=== PATIENT | male | born 1950 | race Caucasian/White ===

== ENCOUNTER 2018-08-14 13:59 | Emergency (ER) | payer OTHER ==
[2018-08-14] MEDS ORDERED: Aspirin 81 MG Tab.Chew PO ONE (14:12)
[2018-08-14] MEDS ORDERED: Sodium Chloride 0.9% 2.5 ML Syringe FLUSH PRN (14:13)
[2018-08-14] MEDS ORDERED: Sodium Chloride 0.9% 10 ML Syringe FLUSH PRN (14:13)
--- NOTE | 2018-08-14 14:18 | EDM.PDOC ---
<Caitlin Reynoso E - Last Filed: 08/14/18 15:56> ED HPI GENERAL MEDICAL PROBLEM - General Chief Complaint: Chest Pain Stated Complaint: HAD CHEST PAIN LAST NIGHT REF FROM [place] Time Seen by Provider: 08/14/18 14:12 Source of Information: Reports: Patient History Limitations: Reports: No Limitations - History of Present Illness INITIAL COMMENTS - FREE TEXT/NARRATIVE: HISTORY AND PHYSICAL: History of present illness: Patient is a 67-year-old male who presents to the emergency room today with complaints of chest pain and bilateral shoulder pain. He reports yesterday he had noticed some intermittent chest pain that would wax and wane. Last evening from midnight to 2 AM he had chest pains while laying in bed. Nothing exacerbated or alleviated the pain. He states he does have a hernia which he is able to reduce himself. States that it frequently needs to be reduced and has not had any complications with that. He mentions this as he is not sure if this is associated with the chest pain he had been experiencing. He thought maybe him pressing on his abdomen was causing his shoulder pain, and perhaps the gas pain was causing his chest pain. This morning he called his provider from the [place] who encouraged him to come to the emergency room for evaluation. He denies any current chest pain or shortness of breath. He states he is here for "evaluation only". Patient denies any fever, chills, headache, change in vision, syncope or near syncope. Denies any chest pain, back pain, shortness of breath or cough. Denies any abdominal pain, nausea, vomiting, diarrhea, constipation or dysuria. Has not noted any blood in urine or stool. Patient has been eating and drinking appropriately. Past medical history of hypertension and abdominal hernia. Denies any personal or family history of heart disease. Review of systems: As per history of present illness and below otherwise all systems reviewed and negative. Past medical history: As per history of present illness and as reviewed below otherwise noncontributory. Surgical history: As per history of present illness and as reviewed below otherwise noncontributory. Social history: See social history for further information Family history: As per history of present illness and as reviewed below otherwise noncontributory. Physical exam: General: Well-developed and well-nourished 67-year-old male. Alert and oriented. Nontoxic appearing and in no acute distress. HEENT: Atraumatic, normocephalic, pupils equal and reactive bilaterally, negative for conjunctival pallor or scleral icterus, mucous membranes moist, trachea midline. No drooling or trismus noted. No meningeal signs. No hot potato voice noted. Lungs: Clear to auscultation, breath sounds equal bilaterally, chest nontender. Heart: S1S2, regular rate and rhythm without overt murmur Abdomen: Soft, nondistended, obese, nontender. Healed abdominal scars to mid- abdomen. Negative for masses. Negative for costovertebral tenderness. Pelvis: Stable nontender. Genitourinary: Deferred. Rectal: Deferred. Skin: Healed scabbing noted to bilateral shins of the lower extremities. Intact , warm, dry. No lesions or rashes noted. Extremities: Atraumatic, moves all extremities per self without difficulty or deficits, negative for cords or calf pain. Normal variance of 3 fingers of the right hand. Neurovascular unremarkable. Neuro: Awake, alert, oriented. Cranial nerves II through XII unremarkable. Cerebellum unremarkable. Motor and sensory unremarkable throughout. Exam nonfocal. Notes: EKG shows a rhythm that appears irregular and regular rhythm; looks like the patient may go in and out of atrial fibrillation as he has intermittent p- waves. Dr Mei, cardiology, did look at this EKG and agrees it looks like variable afib. Chest x-ray shows no acute findings. Troponin is elevated at 12.9. Patient states he has had no chest pain since this morning at 2 AM. Vital signs remain stable. I did discuss these findings with the patient. He is agreeable to transfer to [facility]. EJ Mckoy MD at [facility] was consulted on this case. Agreeable to accepting this patient for further management and evaluation. Diagnostics: CBC, CMP, BNP, Troponin, EKG, CXR, TSH Therapeutics: Saline Lock, Aspirin, Nitro paste, Lovenox Impression: ACS Elevated Troponin New onset of afib Plan: Transfer to [facility] via ground EMS Definitive disposition and diagnosis as appropriate pending reevaluation and review of above. - Related Data Allergies Allergy/AdvReac Type Severity Reaction Status Date / Time No Known Allergies Allergy Verified 08/14/18 14:03 Home Meds: Home Meds Aspirin 81 mg PO DAILY 08/14/18 [History] FLUoxetine HCl [Fluoxetine HCl] 20 mg PO DAILY 08/14/18 [History] Lisinopril 40 mg PO DAILY 08/14/18 [History] Omeprazole 20 mg PO ACBREAKFAST 08/14/18 [History] Sulindac 200 mg PO DAILY 08/14/18 [History] Triamterene/Hydrochlorothiazid [Triamterene-HCTZ 37.5-25 MG] 1 tab PO DAILY 03/04 [History] amLODIPine Besylate [Amlodipine Besylate] 10 mg PO DAILY 08/14/18 [History] Past Medical History Cardiovascular History: Reports: Hypertension Gastrointestinal History: Reports: GERD Psychiatric History: Reports: Depression - Infectious Disease History Infectious Disease History: Reports: Measles, Mumps - Past Surgical History GI Surgical History: Reports: Hernia, Inguinal Musculoskeletal Surgical History: Reports: Amputation, Hip Replacement Other Musculoskeletal Surgeries/Procedures:: L leg Social & Family History - Family History Family Medical History: Noncontributory - Tobacco Use Years of Tobacco use: 50 Packs/Tins Daily: 1 - Recreational Drug Use Recreational Drug Use: No ED ROS GENERAL - Review of Systems Review Of Systems: ROS reveals no pertinent complaints other than HPI. ED EXAM, GENERAL - Physical Exam Exam: See Below (See dictation) Course - Vital Signs Last Recorded V/S: Last Vital Signs Temp 35.9 C 08/14/18 14:01 Pulse 83 08/14/18 16:07 Resp 20 08/14/18 16:07 BP 189/100 H 08/14/18 16:07 Pulse Ox 97 08/14/18 16:07 - Orders/Labs/Meds Orders: Active Orders 24 hr Category Date Time Status EKG Documentation Completion [RC] STAT Care 08/14/18 14:12 Active Sodium Chloride 0.9% [Saline Flush] Med 08/14/18 14:13 Active 10 ml FLUSH ASDIRECTED PRN Sodium Chloride 0.9% [Saline Flush] Med 08/14/18 14:13 Active 2.5 ml FLUSH ASDIRECTED PRN Saline Lock Insert [OM.PC] Stat Oth 08/14/18 14:13 Ordered Medication Orders Sodium Chloride (Saline Flush) 10 ml FLUSH ASDIRECTED PRN PRN Reason: Keep Vein Open Last Admin: 08/14/18 14:33 Dose: 10 ml Sodium Chloride (Saline Flush) 2.5 ml FLUSH ASDIRECTED PRN PRN Reason: Keep Vein Open Last Admin: 08/14/18 14:32 Dose: 2.5 ml Labs: Laboratory Tests 08/14/18 08/14/18 08/14/18 Range/Units 14:23 14:23 14:23 WBC 10.89 (4.0-11.0) K/uL RBC 4.78 (4.50-5.90) M/uL Hgb 14.6 (13.0-17.0) g/dL Hct 42.6 (38.0-50.0) % MCV 89.1 (80.0-98.0) fL MCH 30.5 (27.0-32.0) pg MCHC 34.3 (31.0-37.0) g/dL RDW Std Deviation 45.6 (28.0-62.0) fl RDW Coeff of Emmy 14 (11.0-15.0) % Plt Count 164 (150-400) K/uL MPV 9.80 (7.40-12.00) fL Neut % (Auto) 77.7 (48.0-80.0) % Lymph % (Auto) 13.0 L (16.0-40.0) % [place] % (Auto) 8.5 (0.0-15.0) % Eos % (Auto) 0.6 (0.0-7.0) % Baso % (Auto) 0.2 (0.0-1.5) % Neut # (Auto) 8.5 H (1.4-5.7) K/uL Lymph # (Auto) 1.4 (0.6-2.4) K/uL [place] # (Auto) 0.9 H (0.0-0.8) K/uL Eos # (Auto) 0.1 (0.0-0.7) K/uL Baso # (Auto) 0.0 (0.0-0.1) K/uL Nucleated RBC % 0.0 /100WBC Nucleated RBCs # 0 K/uL Sodium 137 (136-148) mmol/L Potassium 3.2 L (3.5-5.1) mmol/L Chloride 102 (98-107) mmol/L Carbon Dioxide 24.9 (21.0-32.0) mmol/L BUN 13 (7.0-18.0) mg/dL Creatinine 0.7 L (0.8-1.3) mg/dL Est Cr Clr Drug Dosing 109.32 mL/min Estimated GFR (MDRD) > 60.0 ml/min Glucose 120 H (74-106) mg/dL Calcium 8.7 (8.5-10.1) mg/dL Total Bilirubin 1.1 H (0.2-1.0) mg/dL AST 56 H (15-37) IU/L ALT 21 (14-63) IU/L Alkaline Phosphatase 85 (46-116) U/L Troponin I 12.910 H* (0.000-0.056) ng/mL B-Natriuretic Peptide 250 H (<100) PG/ML Total Protein 6.9 (6.4-8.2) g/dL Albumin 3.6 (3.4-5.0) g/dL Globulin 3.3 (2.6-4.0) g/dL Albumin/Globulin Ratio 1.1 (0.9-1.6) TSH 3rd Generation 1.27 (0.36-3.74) uIU/mL Meds: Medications Generic Name Dose Route Start Last Admin Trade Name Freq PRN Reason Stop Dose Admin Sodium Chloride 10 ml 08/14/18 14:13 08/14/18 14:33 Saline Flush FLUSH 10 ml ASDIRECTED PRN Administration Keep Vein Open Sodium Chloride 2.5 ml 08/14/18 14:13 08/14/18 14:32 Saline Flush FLUSH 2.5 ml ASDIRECTED PRN Administration Keep Vein Open Discontinued Medications Generic Name Dose Route Start Last Admin Trade Name Freq PRN Reason Stop Dose Admin Aspirin 324 mg 08/14/18 14:12 08/14/18 14:32 Aspirin PO 08/14/18 14:13 324 mg ONETIME ONE Administration Enoxaparin Sodium 100 mg 08/14/18 16:06 08/14/18 16:14 Lovenox SUBCUT 08/14/18 16:07 100 mg ONETIME ONE Administration Enoxaparin Sodium 40 mg 08/14/18 16:07 Lovenox SUBCUT 08/14/18 16:08 ONETIME ONE Nitroglycerin 1 gm 08/14/18 15:55 08/14/18 16:08 Nitro-Bid 2% TOP 08/14/18 15:56 1 gm ONETIME ONE Administration Departure - Departure Time of Disposition: 16:02 Disposition: DC/Tfer to Acute Hospital 02 Reason for Transfer *Q: Primary PCI Indicated Clinical Impression: New onset a-fib, Acute coronary syndrome, Elevated troponin Forms: ED Department Discharge <Elke Kennedy - Last Filed: 08/14/18 16:16> ED HPI GENERAL MEDICAL PROBLEM - History of Present Illness INITIAL COMMENTS - FREE TEXT/NARRATIVE: Dr Weiner, our mold technician , was curb sided on the EKG as there are sections that are very regular and other sections that look irregular and he agrees that it is the variable A. fib but does not see any acute changes. He agrees with transfer
[2018-08-14 15:16] LABS: CHLORIDE,CL 102 mmol/L (98-107); SODIUM,NA 137 mmol/L (136-148)
--- NOTE | 2018-08-14 15:30 | CR ---
EXAMINATION: Portable chest radiograph. HISTORY: Chest pain. Comparison: 03/05/2016 FINDINGS: The trachea is midline. Heart is borderline in size. The cardiomediastinal silhouette is stable. No pulmonary infiltrates, effusions or pneumothorax. Osseous structures appear unremarkable. IMPRESSION: No acute cardiopulmonary process.
[2018-08-14] MEDS ORDERED: Nitroglycerin 2% Oint 1 GM UD Packet TOP ONE (15:55)
[2018-08-14] MEDS ORDERED: Enoxaparin 100 MG/1 ML Syringe SUBCUT ONE (16:06)
[2018-08-14] MEDS ORDERED: Enoxaparin 60 MG/0.6 ML Syringe SUBCUT ONE (16:07)
[2018-08-14 17:14] VITALS: BP 140/73
== END 2018-08-14 17:21 ==
LOC: MW.ED 13:59
DX: I24.9 Acute ischemic heart disease, unspecified (principal); I48.91 Unspecified atrial fibrillation; R79.89 Other specified abnormal findings of blood chemistry; I10 Essential (primary) hypertension; K21.9 Gastro-esophageal reflux disease without esophagitis; Z79.82 Long term (current) use of aspirin; Z79.899 Other long term (current) drug therapy
CPT/HCPCS: 36415; 71045; 80053; 83880; 84443; 84484; 85025; 93005; 99285; A9270; J1650

== ENCOUNTER 2019-08-13 23:45 | Emergency (ER) | payer MEDICARE, OTHER ==
[~2019-08-13 23:45] MED LIST: Sodium Chloride 0.9% 1,000 ML IV SCH
[2019-08-13] MEDS ORDERED: Sodium Chloride 0.9% 2.5 ML Syringe FLUSH PRN (23:52)
[2019-08-13] MEDS ORDERED: Sodium Chloride 0.9% 10 ML Syringe FLUSH PRN (23:52)
--- NOTE | 2019-08-13 23:54 | EDM.PDOC ---
ED HPI GENERAL MEDICAL PROBLEM - General Chief Complaint: Trauma Stated Complaint: TRAUMA/HEAD/LEG INJURY Time Seen by Provider: 08/13/19 23:51 - History of Present Illness INITIAL COMMENTS - FREE TEXT/NARRATIVE: History of present illness: [] Patient was kicked in the right thigh by andrew 10 AM. He was knocked to the ground and [employer] stepped on his lower leg. Owing over the day has become so much the pain is intolerable and he cannot bear weight. The patient has warfarin for prior heart attack. The patient says he was kicked in the head but not knocked out. He cannot even tell me where it hurts in his head he says there is no pain there now. Patient however is on warfarin and was kicked in the head by a cow. Patient is on warfarin for heart rhythm disturbance and has not had his warfarin for week. He just got his medicine and took his first dose today. Review of systems: As per history of present illness and below otherwise all systems reviewed and negative. Past medical history: As per history of present illness and as reviewed below otherwise noncontributory. Review of the 08/14/2018 admission shows he came in with chest pain, had a elevated troponin, and was discovered to be in atrial fibrillation. He was placed on blood thinners at that time. Surgical history: As per history of present illness and as reviewed below otherwise noncontributory. Social history: No reported history of drug or alcohol abuse. Family history: As per history of present illness and as reviewed below otherwise noncontributory. Physical exam: Constitutional - well developed, well-nourished and in no acute distress HEENT - normocephalic, no evidence of trauma - external nose and mouth normal - no mass in neck and no JVD - mucosae moist Cervical spine cleared by Nexus criteria EYES - full EOM, PERRL, no icterus - no evidence of inflammation, injection, or drainage Respiratory - no respiratory distress, equal bilateral expansion, lungs clear to auscultation and no abnormal lung sounds Cardiovascular - Regular Rhythm with S1 and S2 appreciated and no murmur, gallop or rub. Peripheral pulses symmetrically normal in all four extremities. The distal right foot is warm with normal sensation and movement in good pulses GI - abdomen soft without distension or organomegaly - normal bowel sounds - no guard or rebound Musculoskeletal Marked amount of swelling of the soft tissues especially in the medial anterior thigh with ecchymosis. There is tenderness along the anterior femur and swelling down to the ankle. No gross deformity of long bones or joints - no tenderness, swelling or edema Neurologic -sensation in the right foot alert and oriented times four - CN II- XII grossly intact - motor sensory and coordination symmetrically normal Psychiatric - appropriate mood and affect with normal thought content Hematologic - No petechiae or purpura - mucosa appropriate color and sclera not pale - normal nail bed color and refill Integument -phimosis in the right thigh no rash or evidence of trauma - normal turgor Diagnostics: [] X-ray reveals an isolated minimally displaced medial tibial plateau fracture in the right knee exam reveals point tenderness at the spot. Therapeutics: [] Impression: We will plateau fracture, large hematoma in the right lower extremity, subtherapeutic coagulation for atrial fibrillation. [] Plan: [] Definitive disposition and diagnosis as appropriate pending reevaluation and review of above. R thigh Pain Score (Numeric/FACES): 5 - Related Data Allergies Allergy/AdvReac Type Severity Reaction Status Date / Time No Known Allergies Allergy Verified 08/14/19 00:00 Home Meds: Home Meds Aspirin 81 mg PO DAILY 08/14/18 [History] FLUoxetine HCl [Fluoxetine HCl] 20 mg PO DAILY 08/14/18 [History] Lisinopril 40 mg PO DAILY 08/14/18 [History] Omeprazole 20 mg PO ACBREAKFAST 08/14/18 [History] Sulindac 200 mg PO DAILY 08/14/18 [History] Triamterene/Hydrochlorothiazid [Triamterene-HCTZ 37.5-25 MG] 1 tab PO DAILY 08/14/18 [History] amLODIPine Besylate [Amlodipine Besylate] 10 mg PO DAILY 08/14/18 [History] Past Medical History Cardiovascular History: Reports: Hypertension Gastrointestinal History: Reports: GERD Psychiatric History: Reports: Depression - Infectious Disease History Infectious Disease History: Reports: Measles, Mumps - Past Surgical History GI Surgical History: Reports: Hernia, Inguinal Musculoskeletal Surgical History: Reports: Amputation, Hip Replacement Other Musculoskeletal Surgeries/Procedures:: L leg Social & Family History - Family History Family Medical History: Noncontributory ED ROS GENERAL - Review of Systems Review Of Systems: Comprehensive ROS is negative, except as noted in HPI. ED EXAM, GENERAL - Physical Exam Exam: See Below Free Text/Narrative:: Exam is under HPI EKG INTERPRETATION Rhythm: A-Fib [place]: LAD-Left [place] Deviation QRS: Other (Complete left bundle branch block) ST-T: Other (T waves inverted in aVL) Comparison: Other: (Compared to 08/14/2018 there is no change) EKG Interpretation Comments: Impression no change in the EKG-normal for patient Course - Vital Signs Text/Narrative:: This patient has a hemoglobin of 12.6 with baseline 2 years apart in 2017 in 2019 of 14.6 and his old records. Is reasonable to assume that in the 14 hours since the accident he has dropped his hemoglobin 2 g. We do not have orthopedics on-call and the patient stable for transfer. After his CT of his head contact orthopedics and if necessary neurosurgery and transfer the patient to [facility] Chest x-ray reveals no change from 14 August 2018 no acute disease or injury. CT did not demonstrate any intracranial hemorrhage to me. Radiology report pending At well 58 hours since we have no orthopedics at this facility and the patient needs to be seen for tibial plateau fracture to plan his recovery with his weight issue and to be seen to rule out compartment syndrome I discussed the case with Dr. Henao at [facility] and he agreed to accept the patient. Last Recorded V/S: Last Vital Signs Temp 97.1 F 08/14/19 00:00 Pulse 67 08/14/19 01:00 Resp 18 08/14/19 01:00 BP 144/77 H 08/14/19 01:00 Pulse Ox 95 08/14/19 01:00 - Orders/Labs/Meds Orders: Active Orders 24 hr Category Date Time Status EKG Documentation Completion [RC] STAT Care 08/14/19 00:33 Active Head wo Cont [CT] Stat Exams 08/14/19 00:13 Taken UA W/SURJIT RFLX IF INDICATED [URIN] Stat Lab 08/14/19 00:57 Ordered Sodium Chloride 0.9% [Normal Saline] 1,000 ml Med 08/13/19 23:45 Active IV ASDIRECTED Sodium Chloride 0.9% [Saline Flush] Med 08/13/19 23:52 Active 10 ml FLUSH ASDIRECTED PRN Sodium Chloride 0.9% [Saline Flush] Med 08/13/19 23:52 Active 2.5 ml FLUSH ASDIRECTED PRN Saline Lock Insert [OM.PC] Stat Oth 08/13/19 23:52 Ordered Medication Orders Sodium Chloride (Normal Saline) 1,000 mls @ 125 mls/hr IV ASDIRECTED NICKY Last Admin: 08/14/19 00:12 Dose: 125 mls/hr Documented by: NANCY Sodium Chloride (Saline Flush) 10 ml FLUSH ASDIRECTED PRN PRN Reason: Keep Vein Open Sodium Chloride (Saline Flush) 2.5 ml FLUSH ASDIRECTED PRN PRN Reason: Keep Vein Open Labs: Laboratory Tests 08/13/19 08/13/19 08/13/19 Range/Units 23:55 23:55 23:55 WBC 9.91 (4.0-11.0) K/uL RBC 4.14 L (4.50-5.90) M/uL Hgb 12.6 L (13.0-17.0) g/dL Hct 37.9 L (38.0-50.0) % MCV 91.5 (80.0-98.0) fL MCH 30.4 (27.0-32.0) pg MCHC 33.2 (31.0-37.0) g/dL RDW Std Deviation 51.2 (28.0-62.0) fl RDW Coeff of Emmy 15 (11.0-15.0) % Plt Count 191 (150-400) K/uL MPV 10.20 (7.40-12.00) fL Neut % (Auto) 77.1 (48.0-80.0) % Lymph % (Auto) 12.7 L (16.0-40.0) % [place] % (Auto) 9.0 (0.0-15.0) % Eos % (Auto) 0.9 (0.0-7.0) % Baso % (Auto) 0.3 (0.0-1.5) % Neut # (Auto) 7.6 H (1.4-5.7) K/uL Lymph # (Auto) 1.3 (0.6-2.4) K/uL [place] # (Auto) 0.9 H (0.0-0.8) K/uL Eos # (Auto) 0.1 (0.0-0.7) K/uL Baso # (Auto) 0.0 (0.0-0.1) K/uL Nucleated RBC % 0.0 /100WBC Nucleated RBCs # 0 K/uL INR 1.24 Sodium 142 (136-148) mmol/L Potassium 3.7 (3.5-5.1) mmol/L Chloride 105 (98-107) mmol/L Carbon Dioxide 25.2 (21.0-32.0) mmol/L BUN 18 (7.0-18.0) mg/dL Creatinine 1.0 (0.8-1.3) mg/dL Est Cr Clr Drug Dosing 75.44 mL/min Estimated GFR (MDRD) > 60.0 ml/min Glucose 120 H (74-106) mg/dL Calcium 7.9 L (8.5-10.1) mg/dL Total Bilirubin 1.1 H (0.2-1.0) mg/dL AST 24 (15-37) IU/L ALT 46 (14-63) IU/L Alkaline Phosphatase 80 (46-116) U/L Total Protein 6.3 L (6.4-8.2) g/dL Albumin 3.6 (3.4-5.0) g/dL Globulin 2.7 (2.6-4.0) g/dL Albumin/Globulin Ratio 1.3 (0.9-1.6) Blood Type Antibody Screen 08/14/19 Range/Units 00:13 WBC (4.0-11.0) K/uL RBC (4.50-5.90) M/uL Hgb (13.0-17.0) g/dL Hct (38.0-50.0) % MCV (80.0-98.0) fL MCH (27.0-32.0) pg MCHC (31.0-37.0) g/dL RDW Std Deviation (28.0-62.0) fl RDW Coeff of Emmy (11.0-15.0) % Plt Count (150-400) K/uL MPV (7.40-12.00) fL Neut % (Auto) (48.0-80.0) % Lymph % (Auto) (16.0-40.0) % [place] % (Auto) (0.0-15.0) % Eos % (Auto) (0.0-7.0) % Baso % (Auto) (0.0-1.5) % Neut # (Auto) (1.4-5.7) K/uL Lymph # (Auto) (0.6-2.4) K/uL [place] # (Auto) (0.0-0.8) K/uL Eos # (Auto) (0.0-0.7) K/uL Baso # (Auto) (0.0-0.1) K/uL Nucleated RBC % /100WBC Nucleated RBCs # K/uL INR Sodium (136-148) mmol/L Potassium (3.5-5.1) mmol/L Chloride (98-107) mmol/L Carbon Dioxide (21.0-32.0) mmol/L BUN (7.0-18.0) mg/dL Creatinine (0.8-1.3) mg/dL Est Cr Clr Drug Dosing mL/min Estimated GFR (MDRD) ml/min Glucose (74-106) mg/dL Calcium (8.5-10.1) mg/dL Total Bilirubin (0.2-1.0) mg/dL AST (15-37) IU/L ALT (14-63) IU/L Alkaline Phosphatase (46-116) U/L Total Protein (6.4-8.2) g/dL Albumin (3.4-5.0) g/dL Globulin (2.6-4.0) g/dL Albumin/Globulin Ratio (0.9-1.6) Blood Type A POSITIVE Antibody Screen NEGATIVE Meds: Medications Generic Name Dose Route Start Last Admin Trade Name Freq PRN Reason Stop Dose Admin Sodium Chloride 1,000 mls @ 125 mls/hr 08/13/19 23:45 08/14/19 00:12 Normal Saline IV 125 mls/hr ASDIRECTED NICKY Administration Sodium Chloride 10 ml 08/13/19 23:52 Saline Flush FLUSH ASDIRECTED PRN Keep Vein Open Sodium Chloride 2.5 ml 08/13/19 23:52 Saline Flush FLUSH ASDIRECTED PRN Keep Vein Open Departure - Departure Time of Disposition: 01:45 Disposition: DC/Tfer to Acute Hospital 02 Condition: Good Clinical Impression: Tibial plateau fracture, right, Hematoma, Subtherapeutic anticoagulation - Discharge Information Referrals: PCP,None [Primary Care Provider] - Forms: ED Department Discharge Sepsis Event Note (ED) - Focused Exam Vital Signs: Vital Signs Temp Pulse Resp BP Pulse Ox 08/14/19 01:00 67 18 144/77 H 95 08/14/19 00:00 97.1 F 72 18 150/100 H 95 08/13/19 23:47 96.6 F L 70 18 174/102 H 95 - My Orders Last 24 Hours: My Active Orders 08/13/19 23:45 Sodium Chloride 0.9% [Normal Saline] 1,000 ml IV ASDIRECTED 08/13/19 23:52 Sodium Chloride 0.9% [Saline Flush] 10 ml FLUSH ASDIRECTED PRN Sodium Chloride 0.9% [Saline Flush] 2.5 ml FLUSH ASDIRECTED PRN Saline Lock Insert [OM.PC] Stat 08/14/19 00:13 Head wo Cont [CT] Stat 08/14/19 00:33 EKG Documentation Completion [RC] STAT 08/14/19 00:57 UA W/SURJIT RFLX IF INDICATED [URIN] Stat - Assessment/Plan Last 24 Hours: My Active Orders 08/13/19 23:45 Sodium Chloride 0.9% [Normal Saline] 1,000 ml IV ASDIRECTED 08/13/19 23:52 Sodium Chloride 0.9% [Saline Flush] 10 ml FLUSH ASDIRECTED PRN Sodium Chloride 0.9% [Saline Flush] 2.5 ml FLUSH ASDIRECTED PRN Saline Lock Insert [OM.PC] Stat 08/14/19 00:13 Head wo Cont [CT] Stat 08/14/19 00:33 EKG Documentation Completion [RC] STAT 08/14/19 00:57 UA W/SURJIT RFLX IF INDICATED [URIN] Stat
[2019-08-14 00:21] LABS: BLOOD UREA NITROGEN,BUN 18 mg/dL (7.0-18.0); CARBON DIOXIDE,CO2 25.2 mmol/L (21.0-32.0); CHLORIDE,CL 105 mmol/L (98-107); GLUCOSE RANDOM 120 mg/dL (74-106); POTASSIUM,K 3.7 mmol/L (3.5-5.1); SODIUM,NA 142 mmol/L (136-148)
--- NOTE | 2019-08-14 00:33 | CR ---
INDICATION: Pelvis injury from trauma, kicked by cow TECHNIQUE: Pelvis radiograph 1 view COMPARISON: None FINDINGS: Moderate degradation of image quality noted due to body habitus. Bone: No acute fractures or aggressive bone lesions are identified. Joint: Left bipolar hip prosthesis is partially visualized. Severe right hip osteoarthritis is noted. The visualized sacroiliac joints are unremarkable in appearance. The pubic symphysis is normal in appearance. Soft tissue: Unremarkable. The visualized bowel gas pattern of the pelvis is unremarkable in appearance. No radiopaque foreign bodies are seen. IMPRESSION: 1. No acute osseous injuries or abnormalities are noted. Dictated by Demetri Morocho MD @ 08/14/2019 12:31:40 AM Dictated by: Demetri Morocho MD @ 08/14/2019 00:31:46 (Electronically Signed)
--- NOTE | 2019-08-14 00:35 | CR ---
INDICATION: Femur injury from trauma, kicked by cow TECHNIQUE: Femur radiograph 2 views on 4 films right COMPARISON: None FINDINGS: Bone: No acute fractures or aggressive bone lesions are identified. An intra-articular fracture of the medial tibial plateau is noted and described on separate report. Joint: Severe osteoarthritis of the right hip joint is noted. A small knee effusion is seen. Soft tissue: No radiopaque foreign bodies are seen. Diffuse subcutaneous edema is present medial aspect of the thigh. IMPRESSION: 1. No acute osseous injuries or abnormalities are noted in the femur. Dictated by Demetri Morocho MD @ 08/14/2019 12:33:44 AM Dictated by: Demetri Morocho MD @ 08/14/2019 00:33:46 (Electronically Signed)
--- NOTE | 2019-08-14 00:35 | CR ---
INDICATION: Tibia injury from trauma, kicked by cow TECHNIQUE: Tibia-fibula radiograph 2 views right on 4 films COMPARISON: None FINDINGS: Bone: There is an intra-articular fracture in the medial tibial plateau noted. Joint: The visualized knee and ankle joints are unremarkable. No significant joint effusion is seen. Soft tissue: Moderate diffuse subcutaneous edema is present throughout the calf. Overlying fabric artifacts moderately limits the evaluation of the soft tissues. No radiopaque foreign bodies are seen. IMPRESSION: 1. There is an intra-articular fracture in the medial tibial plateau noted. Dictated by Demetri Morocho MD @ 08/14/2019 12:32:39 AM Dictated by: Demetri Morocho MD @ 08/14/2019 00:32:42 (Electronically Signed)
[2019-08-14 01:05] VITALS: BP 144/77; PULSE 67
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
== END 2019-08-14 01:52 ==
LOC: MW.ED 23:45
DX: S82.141A Displaced bicondylar fracture of right tibia, initial encounter for closed fracture (principal); S70.11XA Contusion of right thigh, initial encounter; R79.1 Abnormal coagulation profile; I10 Essential (primary) hypertension; K21.9 Gastro-esophageal reflux disease without esophagitis; F32.9 Major depressive disorder, single episode, unspecified; Z79.82 Long term (current) use of aspirin; Z79.899 Other long term (current) drug therapy; W55.22XA Struck by cow, initial encounter
CPT/HCPCS: 36415; 70450; 71045; 72170; 73552; 73590; 80053; 81001; 85025; 85610; 86850; 86900; 86901; 93005; 99285; J7030; 99284